=== PATIENT | female | born 1980 | race Hispanic/Latino ===

== ENCOUNTER 2022-01-16 05:48 | Observation (INO) | payer MEDICAID ==
--- NOTE | 2022-01-15 15:43 | Anesthesia Consultation ---
Anesthesia Consult and Med Hx Date of service: 01/16/22 - Airway Anesthetic Teeth Evaluation: Poor, Chipped ROM Head & Neck: Adequate Mental/Hyoid Distance: Adequate Mallampati Class: Class II - Pre-Operative Health Status ASA Pre-Surgery Classification: ASA2 Proposed Anesthetic Plan: General Nerve Block: TAP - Pulmonary Hx Smoking: Yes (From age 13) Hx Respiratory Symptoms: No (+2FS) Hx Sleep Apnea: No - Central Nervous System Hx Seizures: Yes (Only as a reaction to phenergan) Hx Psychiatric Problems: Yes - Other Systems Hx Alcohol Use: Yes (Rarely) Hx Substance Use: Yes (Hx meth use) Hx Cancer: Yes - Additional Comments Anesthesia Medical History Comments: Meth mouth/Rotten teeth-pt states understanding of high likelihood of dental damage. POOR IV ACCESS
--- NOTE | 2022-01-16 05:20 | Short Stay Summary ---
Short Stay Documentation Date of service: 01/16/22 Narrative H&P: 41y/o with a history of ovarian cysts and pelvic pain. The patient reports having abnormal vaginal bleeding that has been unresponsive to medical management. Pelvic ultrasound demonstrated a mildly enlarged uterus measuring 11.6cm and a right ovarian cyst 2.2cm. The patient's left ovary is surgically absent. She elects to have definitive surgical management. - History Principal diagnosis: Ovarian cyst Past Medical History: other (opoid addiction) Past Surgical History: Other (oophorectomy; tubal ligation) Social history: , smoking - Allergies and Medications Current Medications: Allergies promethazine [From Phenergan] Allergy (Verified 01/09/22 17:27) Seizure Sulfa (Sulfonamide Antibiotics) Allergy (Verified 01/09/22 17:27) high fever, hives Home Medications Medication Instructions Recorded Confirmed Last Taken Type FLUoxetine [PROzac] 20 mg PO QDAY 01/09/22 01/09/22 Unknown History Methadone 110 mg PO DAILY 01/09/22 01/09/22 Unknown History Active Medications Acetaminophen (Acetaminophen 500 Mg Tab) 1,000 mg PO ONCE NR Stop: 01/16/22 20:00 Fentanyl (Fentanyl 100 Mcg/2 Ml Inj) 100 mcg IV ONCE NR Stop: 01/16/22 20:00 Lactated Ringer's (Lactated Ringers) 1,000 mls @ 125 mls/hr IV DIRECT SANDY Stop: 01/16/22 23:59 Magnesium Oxide (Magnesium Oxide 400 Mg Tab) 400 mg PO ONCE NR Stop: 01/16/22 20:00 Methocarbamol (Methocarbamol 750 Mg Tab) 1,500 mg PO ONCE NR Stop: 01/16/22 20:00 Midazolam HCl (Midazolam 2 Mg/2 Ml Inj) 2 mg IV PREOP NR Stop: 01/16/22 23:59 - Physical exam General appearance: no acute distress Integumentary: no rash HEENT: Atraumatic Lungs: Clear to auscultation Breasts: deferred Heart: Regular rate Gastrointestinal: normal - Brief post op/procedure progress note Date of procedure: 01/16/22 Pre-op diagnosis: Right ovarian cyst; chronic pelvic pain; dysfunctional uterine bleeding Post-op diagnosis: same Procedure: Robotic hysterectomy and right salpingo-oophorectomy Lysis of adhesions Anesthesia: GERI Surgeon: MANDEEP WALKER Estimated blood loss: 50-100ml Pathology: list (Uterus cervix right tube and ovary) Specimen disposition: to lab Condition: stable - Hospital course Hospital course: The patient was admitted the day of surgery and underwent a robotic hysterectomy and right salpingo-oophorectomy. The patient has a history of a surgically absent left adnexa. Please see operative note for details of surgery. Her postoperative course was uneventful. - Disposition Condition at discharge: Good Disposition: 01 HOME / SELF CARE / HOMELESS Short Stay Discharge Plan Activity: other (Pelvic rest for 6 weeks) Diet: regular Additional Instructions: Schedule follow-up with Dr. Walker in [address] in 2 weeks Pelvic rest for 6 weeks No tub baths for 4 weeks but patient may shower
[~2022-01-16 05:48] MED LIST: MIDAZOLAM 2 MG/2 ML INJ IV NR
[2022-01-16] MEDS ORDERED: ACETAMINOPHEN 500 MG TAB PO NR (06:00)
[2022-01-16] MEDS ORDERED: MAGNESIUM OXIDE 400 MG TAB PO NR (06:00)
[2022-01-16] MEDS ORDERED: LACTATED RINGERS 1,000 ML IV SCH (06:00)
[2022-01-16] MEDS ORDERED: fentaNYL 100 MCG/2 ML INJ IV NR (06:00)
[2022-01-16 06:59] LABS: Basophils # (Auto) 0.1 K/mm3 (0.0-0.1); Basophils % (Auto) 0.6 % (0.0-1.8); Eosinophils # (Auto) 0.2 K/mm3 (0.0-0.4); Eosinophils % (Auto) 2.5 % (0.0-4.3); Hematocrit 43.1 % (30.3-42.9); Hemoglobin 13.5 gm/dl (10.1-14.3); Lymphocytes # (Auto) 2.9 K/mm3 (1.2-5.4); Lymphocytes % (Auto) 30.8 % (13.4-35.0); Mean Corpuscular HGB Conc 31 % (30-34); Mean Corpuscular Volume 84 fl (79-97); Monocytes # (Auto) 0.7 K/mm3 (0.0-0.8); Monocytes % (Auto) 7.7 % (0.0-7.3); Platelet Count 260 K/mm3 (140-440); Red Blood Count 5.11 M/mm3 (3.65-5.03); Red Cell Distribution Width 15.9 % (13.2-15.2)
[2022-01-16] MEDS ORDERED: MIDAZOLAM 5 MG/5 ML INJ MDV IV ONE (07:32)
[2022-01-16] MEDS ORDERED: dexAMETHasone 4 MG/ML VIAL ONE (07:33)
[2022-01-16] MEDS ORDERED: BUPIVACAINE/PF (0.25%) 2.5 MG/ML 30 ML VIAL INFILTRATI ONE (07:33)
[2022-01-16] MEDS ORDERED: HYDROmorphone 0.5 MG/0.5 ML INJ IV PRN ×2 (07:38)
[2022-01-16] MEDS ORDERED: ONDANSETRON 4 MG/2 ML INJ IV PRN ×2 (07:38→11:23)
--- NOTE | 2022-01-16 07:38 | Anesthesia Day of Surgery ---
Anesthesia Day of Surgery - Day of Surgery Patient Examined: Yes Patient H&P Reviewed: Yes Patient is NPO: Yes
[2022-01-16] MEDS ORDERED: BUPIVACAINE/PF (0.5%) 5 MG/1 ML 30 ML VIAL INFILTRATI ONE (07:58)
[2022-01-16] MEDS ORDERED: NEOMY 40 MG/POLYMYXIN B 200,000 UNITS/ML (GU) AMPULE IR ONE ×2 (07:59→11:37)
[2022-01-16] MEDS ORDERED: ePHEDrine SULFATE 50 MG/1 ML INJ ONE (08:47)
[2022-01-16] MEDS ORDERED: SUCCINYLCHOLINE CHLORIDE 200 MG/10 ML INJ MDV ONE (08:57)
[2022-01-16] MEDS ORDERED: ROCURONIUM 50 MG/5 ML INJ IV ONE ×2 (08:57→09:40)
[2022-01-16] MEDS ORDERED: dexAMETHasone 20 MG/5 ML VIAL ONE (08:57)
[2022-01-16] MEDS ORDERED: ONDANSETRON 4 MG/2 ML INJ ONE (08:57)
[2022-01-16] MEDS ORDERED: fentaNYL 100 MCG/2 ML INJ ONE (08:57)
[2022-01-16] MEDS ORDERED: LIDOCAINE MPF (2%) 20 MG/1 ML VIAL 5 ML ONE (08:57)
[2022-01-16] MEDS ORDERED: propofoL 200 MG/20 ML VIAL IV ONE ×2 (08:57→10:44)
[2022-01-16] MEDS ORDERED: GLYCOPYRROLATE 0.4 MG/2 ML INJ ONE (10:23)
[2022-01-16] MEDS ORDERED: PHENYLEPHRINE 10 MG/1 ML INJ SDV ONE (10:23)
--- NOTE | 2022-01-16 10:24 | Operative Report ---
Operative Report Operative Report: Date of surgery: January 16, 2022 Preoperative diagnoses: Right ovarian cyst; chronic pelvic pain; dysfunctional uterine bleeding Postoperative diagnoses: Same as above Procedure: Robotic hysterectomy and right salpingo-oophorectomy; lysis of adhesions Surgeon: Tania Contreras M.D. Horseshoer: Jean Pierre Cruz Anesthesia: Gen. endotracheal anesthesia Estimated blood loss: Less than 100 mL Pathology: Uterus, cervix, right tube and ovary Indication: 41-year-old -0-1-3 with a history of a persistent right ovarian cyst and chronic pelvic pain. The patient also notes history of abnormal uterine bleeding. She has a history of previous left oophorectomy. Procedure: The patient was taken to the operating room and given general endotracheal anesthesia without complication. She is prepped and draped in a normal sterile fashion. A bivalve speculum was placed in the patient's vagina and a single- tooth tenaculum placed on the anterior lip of the cervix. The uterus was sounded with the uterine sound. A stay suture was placed at 12 o'clock on the ectocervix. A Medication Review uterine manipulator was placed in the bivalve speculum was then removed. Attention was then turned to the patient's abdomen where a 8 millimeter supra umbilical skin incision was then made. A Veress needle was placed and peritoneal entry was verified water-filled syringe. Insufflation of the peritoneal cavity was performed with CO2 gas. The 8 mm trocar was then placed under direct visualization. An additional 8 mm trocar was placed on the patient's left and right lateral side just opposite of the supraumbilical trocar. An additional 5 mm right lateral trocar was then placed as the accessory port. The Jeronimo Pineda device was used to close the fascia of the 12 mm incision. The patient was then placed in steep Trendelenburg. The da Kinsey robot was then engaged. A fenestrated forcep was placed in arm 2 and a vessel sealer was placed in arm 1. The surgeon then transferred to the surgical console. General survey of the abdomen and pelvis revealed evidence of omental adhesions to the anterior abdominal wall. The right ovary was enlarged with evidence of a hemorrhagic cyst. The right ovary was adherent to the right pelvic sidewall. The cornua of the left uterus was adherent to the left pelvic sidewall and the left adnexa was surgically absent. The infundibulopelvic ligament was then isolated on the right. The right adnexal adhesion was released from the pelvic sidewall. The omental adhesions to the anterior abdominal wall were lysed with the vessel sealer. The vessel sealer was used to coagulate the ligament which was then transected. The tube and ovary were transected from the supply. The round ligament was then coagulated and transected also. The vesicouterine peritoneum was then entered from the patient's right side. The uterine vessels were then coagulated with the vessel sealer. The vessels were then transected . Attention was then turned to the patient's left side. Lysis of adhesions were performed to release the uterus from the pelvic sidewall. The vesical peritoneum was then entered from the left and joined in the midline. Peritoneum was reflected off of the lower uterine segment. Uterine vessels were then coagulated and then transected. The blood s upply to the uterus was adequately contained, a posterior colpotomy was made. The V care ring was visualized. Posterior colpotomy was created with the monopolar scissors. The incision was continued circumferentially until anterior colpotomy was made. The cervix and uterus were amputated from the vaginal cuff. The uterus was then removed along with the tube and ovary through the vagina and a warm laparotomy sponge was placed and maintain the pneumoperitoneum. The vaginal cuff was then closed in a running fashion with V lock suture. Irrigation of the pelvis was performed. Surgicel powder was applied to the incision. The skin was then reapproximated with 4-0 Monocryl. The tissue was sent to pathology which included the cervix, uterus, tubes and ovaries. The patient was then successfully extubated. She was then taken to the recovery room in stable condition. All sponge laps and needle counts were correct x2.
[2022-01-16] MEDS ORDERED: SUGAMMADEX SODIUM 200 MG/2 ML VIAL IV ONE (10:30)
[2022-01-16] MEDS ORDERED: ACETAMINOPHEN 325 MG TAB PO PRN (11:22)
[2022-01-16] MEDS ORDERED: IBUPROFEN 800 MG TAB PO PRN (11:23)
[2022-01-16] MEDS ORDERED: MORPHINE 4 MG/1 ML INJ IV PRN (11:23)
[2022-01-16] MEDS ORDERED: MAGNESIUM HYDROXIDE (MOM) ORAL LIQD UDC PO PRN (11:23)
[2022-01-16] MEDS ORDERED: SODIUM CHLORIDE 0.9% IRRIG SOLN 2000 ML IR ONE (11:37)
[2022-01-16] MEDS ORDERED: SODIUM CHLORIDE 0.9% IRR 1,500 ML BOTTLE IR ONE (11:38)
[2022-01-16] MEDS ORDERED: D5W/LACTATED RINGERS 1,000 ML IV SCH (12:00)
--- NOTE | 2022-01-16 14:01 | Post Anesthesia Evaluation ---
- Post Anesthesia Evaluation Patient Participated: Yes Airway Patent: Yes Stable Respiratory Function: Yes Nausea/Vomiting: No Temp > 96.8F: Yes Pain Manageable: Yes Adequeate Hydration: Yes Anesthesia Complications: No Block Receding Appropriately: Yes Patient on Ventilator: No
[2022-01-16] MEDS: KETOROLAC 30 MG/1 ML INJ IV PRN (17:00)
[2022-01-16] MEDS: oxyCODONE /ACETAMINOPHEN 5-325MG TAB PO PRN (19:47)
[2022-01-17] MEDS: KETOROLAC 30 MG/1 ML INJ IV PRN (01:00)
[2022-01-17 03:41] LABS: Hematocrit 38.6 % (30.3-42.9); Hemoglobin 12.5 gm/dl (10.1-14.3)
[2022-01-17] MEDS: oxyCODONE /ACETAMINOPHEN 5-325MG TAB PO PRN ×2 (04:35→09:55)
[2022-01-17] MEDS ORDERED: METHADONE 10 MG TAB PO ONE (05:00)
--- NOTE | 2022-01-17 08:23 | Progress Note ---
Assessment and Plan - Patient Problems (1) H/O hysterectomy for benign disease Current Visit: Yes Status: Acute Plan to address problem: Patient doing well Discharge home Subjective - Subjective Date of service: 01/17/22 Principal diagnosis: Ovarian cyst Interval history: The patient was admitted for observation secondary to vaginal bleeding after the hysterectomy. Additional sutures were placed in the vaginal vault for reinforcement. Vaginal packing was also placed intraoperatively. The patient is without any significant complaints today. Her vaginal packing was removed without incident. Patient reports: appetite normal, voiding normally Objective - Vital Signs Latest vital signs: Vital Signs Temp Pulse Resp BP BP Pulse Ox 01/17/22 05:20 99.2 F 78 18 112/51 84 01/17/22 01:32 99.0 F 86 18 154/72 92 01/16/22 20:05 18 98 01/16/22 19:40 98.4 F 79 18 136/78 01/16/22 14:43 91 H 139/82 01/16/22 14:18 97 01/16/22 14:16 97.4 F L 94 H 18 157/84 97 01/16/22 13:00 91 H 17 153/65 96 01/16/22 12:45 89 16 133/68 96 01/16/22 12:30 85 16 159/85 97 01/16/22 12:15 86 15 151/78 99 01/16/22 12:00 74 16 143/92 99 01/16/22 11:45 75 15 139/87 100 01/16/22 11:34 78 13 143/89 100 01/16/22 11:29 76 14 150/88 100 01/16/22 11:24 97.1 F L 80 12 147/79 100 Intake and Output 01/16/22 01/17/22 01/17/22 22:59 06:59 14:59 Intake Total 200 Output Total 1999 Balance -1800 Intake: Intake, Free Water 200 Output: Urine 1999 Indwelling Catheter 1999 Other: Total, Output Amount 1999 Voiding Method Indwelling Catheter # Voids Indwelling Catheter 800
--- NOTE | 2022-01-17 08:24 | Discharge Summary ---
Providers - Providers Date of Admission: 01/16/22 11:22 Date of discharge: 01/17/22 Attending physician: MANDEEP WALKER Primary care physician: JASEN MENDOZA Hospitalization Reason for admission: other (Hysterectomy) Procedure: other (Robotic hysterectomy) Discharge diagnosis: other (Dysfunctional uterine bleeding) Hospital course: The patient was admitted the day of surgery underwent a robotic hysterectomy. The procedure was complicated by vaginal bleeding after the surgery for which additional sutures had to be placed in the vagina was packed. The patient was observed overnight and had no worsening of her bleeding. Condition at discharge: Good Disposition: 01 HOME / SELF CARE / HOMELESS - Discharge Diagnoses (1) H/O hysterectomy for benign disease Status: Acute Plan - Provider Discharge Summary Activity: no sex for 6 weeks, no heavy lifting 4 weeks, no strenuous exercise Diet: routine Instructions: routine Additional instructions: [] Smoking cessation referral if applicable(refer to patient education folder for contact #) [] Refer to [facility] Booklet Call your doctor immediately for: * Fever > 100.5 * Heavy vaginal bleeding ( >1 pad per hour) * Severe persistent headache * Shortness of breath * Reddened, hot, painful area to leg or breast * Schedule follow-up in 4 weeks - Follow up plan
[2022-01-17 09:21] VITALS: BP 149/69
== END 2022-01-17 10:55 | disposition home or self-care (01) ==
LOC: OR 05:48 → OB 11:22
PROVIDERS: ADMIT Obstetrics & Gynecology; ATTEND Obstetrics & Gynecology
DX: N93.8 Other specified abnormal uterine and vaginal bleeding (principal); Z20.822 Contact with and (suspected) exposure to COVID-19; R10.2 Pelvic and perineal pain; N83.201 Unspecified ovarian cyst, right side; G89.29 Other chronic pain; N85.01 Benign endometrial hyperplasia; Z79.899 Other long term (current) drug therapy; Z98.890 Other specified postprocedural states; Z98.51 Tubal ligation status
CPT/HCPCS: 36415; 58262; 64488; 81025; 85014; 85018; 85025; 86850; 86900; 86901; 88305; 88307; 96374; 96375; 96376; G0378; G0379; J0330; J0690; J1100; J1815; J1885; J2250; J2270; J2370; J2405; J2704; J3010; J3490; J7120; U0003; 64450